=== PATIENT | female | born 1990 | race Caucasian/White ===

== ENCOUNTER 2018-12-19 06:55 | Inpatient (IN) | payer MEDICAID ==
[2018-12-19] MEDS ORDERED: Lidocaine 1% 50 ML MDV INJECT PRN (08:34)
[2018-12-19] MEDS ORDERED: Water For Irrigation,Sterile 1,000 ML Container IRR PRN (08:34)
[2018-12-19] MEDS ORDERED: Misoprostol 25 MCG (1/4 of 100 MCG) Tab PO PRN ×2 (08:34→13:00)
[2018-12-19] MEDS ORDERED: Sodium Chloride 0.9% 2.5 ML Syringe FLUSH PRN (08:34)
[2018-12-19] MEDS ORDERED: Misoprostol 200 MCG Tab PO PRN (08:34)
[2018-12-19] MEDS ORDERED: Tranexamic Acid 1,000 MG in Sodium Chloride 0.9% 100 ML IV PRN (08:34)
[2018-12-19] MEDS ORDERED: Nalbuphine 10 MG/1 ML Vial IVPUSH PRN (08:34)
[2018-12-19] MEDS ORDERED: Sodium Chloride 0.9% 10 ML Syringe FLUSH PRN (08:34)
[2018-12-19] MEDS ORDERED: Methylergonovine 0.2 MG/1 ML Amp IM PRN (08:34)
[2018-12-19] MEDS ORDERED: Butorphanol 1 MG/ML SDV IVPUSH PRN (08:34)
[2018-12-19] MEDS ORDERED: Carboprost Tromethamine 250 MCG/1 ML Amp IM PRN (08:34)
[2018-12-19] MEDS ORDERED: Terbutaline 1 MG/ML SDV SUBCUT PRN (08:34)
[2018-12-19] MEDS ORDERED: Oxytocin/0.9 % Sodium Chloride 30 UNIT/500 ML BAG IV SCH ×2 (08:45)
[2018-12-19] MEDS ORDERED: Lactated Ringers 1,000 ML IV SCH (08:45)
--- NOTE | 2018-12-19 08:46 | PCM.LDHP ---
L&D History of Present Illness - General Date of Service: 12/19/18 Admit Problem/Dx: Patient Status Order with Admit Dx/Problem 12/19/18 07:18 Patient Status [ADT] Routine Admission Diagnosis/Problem Admission Diagnosis/Problem 12/19/18 08:50 28yo presents following SROM at 2200 on 12/18/18 per patient, clear fluid; A+, R-NI, GBS negative, NKDA Source of Information: Patient History Limitations: Reports: No Limitations - History of Present Illness Introduction:: 28yo presents following SROM at 2200 on 12/18/18 per patient; A+, R-NI, GBS negative, NKDA Timing/Duration: Reports: minutes: Severity: Moderate Improves with: Reports: Movement - Related Data Allergies/Adverse Reactions: Allergies Allergy/AdvReac Type Severity Reaction Status Date / Time No Known Allergies Allergy Verified 12/19/18 07:46 Home Medications: Home Meds Vits #93/Iron Fum/FA [ Formula Tablet] 1 each PO 12/19/18 [ History] H&P Review of Systems - Review of Systems: Review Of Systems: See Below General: Reports: No Symptoms HEENT: Reports: No Symptoms Pulmonary: Reports: No Symptoms Cardiovascular: Reports: No Symptoms Gastrointestinal: Reports: No Symptoms Genitourinary: Reports: No Symptoms Musculoskeletal: Reports: No Symptoms Skin: Reports: No Symptoms Psychiatric: Reports: No Symptoms Neurological: Reports: No Symptoms Hematologic/Lymphatic: Reports: No Symptoms Immunologic: Reports: No Symptoms L&D Exam - Exam Exam: See Below - Vital Signs Weight: 70.579 kg - OB Specific Contraction Intensity: Mild to Moderate Movement: Active Heart Tones: Present - Exam General: Alert, Oriented, Cooperative, Mild Distress Neck: Supple, Trachea Midline, Full Range of Motion Lungs: Clear to Auscultation, Normal Respiratory Effort Cardiovascular: Regular Rate, Regular Rhythm, Normal S1, Normal S2 GI/Abdominal Exam: Normal Bowel Sounds Rectal Exam: Deferred Back Exam: Normal Inspection, Full Range of Motion Extremities: Normal Inspection, Normal Range of Motion Skin: Warm, Dry, Intact Psychiatric: Alert, Normal Affect, Normal Mood - Patient Data Lab Results Last 24 hrs: Laboratory Results - last 24 hr 12/19/18 12/19/18 Range/Units 07:20 07:20 Urine Color YELLOW Urine Appearance SLT CLOUDY Urine pH 7.0 (5.0-8.0) Ur Specific [place] 1.010 (1.001-1.035) Urine Protein NEGATIVE (NEGATIVE) mg/dL Urine Glucose (UA) NEGATIVE (NEGATIVE) mg/dL Urine Ketones NEGATIVE (NEGATIVE) mg/dL Urine Occult Blood LARGE H (NEGATIVE) Urine Nitrite NEGATIVE (NEGATIVE) Urine Bilirubin NEGATIVE (NEGATIVE) Urine Urobilinogen 0.2 (<2.0) EU/dL Ur Leukocyte Esterase SMALL H (NEGATIVE) Membrane Rupture POSITIVE - Problem List (1) Supervision of normal IUP (intrauterine ) in primigravida SNOMED Code(s): 52657202, 056824898, 719381834, 227356826 ICD Code: Z34.00 - ENCNTR FOR SUPRVSN OF NORMAL FIRST , UNSP TRIMESTER Status: Acute Priority: High Current Visit: Yes Qualifiers: Trimester: third trimester Qualified Code(s): Z34.03 - Encounter for supervision of normal first , third trimester Problem List Initiated/Reviewed/Updated: Yes Orders Last 24hrs: Active Orders 24 hr Category Date Time Status Patient Status [ADT] Routine ADT 12/19/18 07:18 Active Bedrest Bathroom Privileges [RC] ASDIRECTED Care 12/19/18 08:34 Active Communication Order [RC] ASDIRECTED Care 12/19/18 08:34 Active Communication Order [RC] ASDIRECTED Care 12/19/18 08:34 Active Communication Order [RC] ASDIRECTED Care 12/19/18 08:34 Active Heart Tones [RC] CONTINUOUS Care 12/19/18 08:35 Active Non Stress Test [RC] PER UNIT ROUTINE Care 12/19/18 07:18 Active May Shower [RC] ASDIRECTED Care 12/19/18 08:35 Active Notify Provider [RC] PRN Care 12/19/18 08:34 Active Notify Provider [RC] PRN Care 12/19/18 08:34 Active Notify Provider [RC] PRN Care 12/19/18 08:35 Active Notify Provider [RC] STAT Care 12/19/18 08:34 Active Oxygen Therapy [RC] ASDIRECTED Care 12/19/18 08:34 Active Up ad Pooja [RC] ASDIRECTED Care 12/19/18 07:18 Active Vaginal Exam [RC] Click to Edit Care 12/19/18 07:18 Active Vital Signs [RC] PER UNIT ROUTINE Care 12/19/18 07:18 Active Regular Diet [DIET] Diet 12/19/18 Breakfast Active CBC W/O DIFF,HEMOGRAM [HEME] Routine Lab 12/19/18 08:35 Ordered TYPE AND SCREEN [BBK] Routine Lab 12/19/18 08:35 Ordered Butorphanol [Stadol] Med 12/19/18 08:34 Active 1 mg IVPUSH Q1H PRN Carboprost Tromethamine [Hemabate DS] Med 12/19/18 08:34 Ordered 250 mcg IM ASDIRECTED PRN Lactated Ringers [Ringers, Lactated] 1,000 ml Med 12/19/18 08:45 Ordered IV ASDIRECTED Lidocaine 1% [Xylocaine 1%] Med 12/19/18 08:34 Ordered 50 ml INJECT ONETIME PRN Methylergonovine [Methergine] Med 12/19/18 08:34 Ordered 0.2 mg IM ASDIRECTED PRN Nalbuphine [Nubain] Med 12/19/18 08:34 Active 10 mg IVPUSH Q1H PRN Oxytocin/0.9 % Sodium Chloride [Oxytocin 30 Unit/500 ML Med 12/19/18 08:45 Ordered -NS] 30 unit in 500 ml IV TITRATE Oxytocin/0.9 % Sodium Chloride [Oxytocin 30 Unit/500 ML Med 12/19/18 08:45 Ordered -NS] 30 unit in 500 ml IV TITRATE Sodium Chloride 0.9% [Saline Flush] Med 12/19/18 08:34 Ordered 10 ml FLUSH ASDIRECTED PRN Sodium Chloride 0.9% [Saline Flush] Med 12/19/18 08:34 Ordered 2.5 ml FLUSH ASDIRECTED PRN Terbutaline [Brethine] Med 12/19/18 08:34 Ordered 0.25 mg SUBCUT ASDIRECTED PRN Tranexamic Acid [Cyklokapron] 1,000 mg Med 12/19/18 08:34 Ordered Sodium Chloride 0.9% [Normal Saline] 100 ml IV ONETIME Water For Irrigation,Sterile [Sterile Water for Med 12/19/18 08:34 Ordered Irrigation] 1,000 ml IRR ASDIRECTED PRN miSOPROStol [Cytotec] Med 12/19/18 08:34 Ordered 200 mcg PO ONETIME PRN miSOPROStol [Cytotec] Med 12/19/18 08:34 Ordered 25 mcg PO ONETIME PRN miSOPROStol [Cytotec] Med 12/19/18 13:00 Ordered 25 mcg PO Q4H PRN Scalp Electrode [WOMSER] Per Unit Routine Oth 12/19/18 08:35 Ordered Medication Administration Instruction [OM.PC] Q3H Oth 12/19/18 08:45 Ordered Peripheral IV Insertion Adult [OM.PC] Routine Oth 12/19/18 08:35 Ordered Resuscitation Status Routine Resus Stat 12/19/18 07:18 Ordered Medication Orders Butorphanol Tartrate (Stadol) 1 mg IVPUSH Q1H PRN PRN Reason: Pain Carboprost Tromethamine (Hemabate Ds) 250 mcg IM ASDIRECTED PRN PRN Reason: Post Hemorrhage Lactated Ringer's (Ringers, Lactated) 1,000 mls @ 150 mls/hr IV ASDIRECTED DEONTE Oxytocin/Sodium Chloride (Oxytocin 30 Unit/500 Ml-Ns) 30 unit in 500 mls @ 2 mls/hr IV TITRATE DEONTE; Protocol Oxytocin/Sodium Chloride (Oxytocin 30 Unit/500 Ml-Ns) 30 unit in 500 mls @ 999 mls/hr IV TITRATE DEONTE Tranexamic Acid 1,000 mg/ (Sodium Chloride) 110 mls @ 660 mls/hr IV ONETIME PRN PRN Reason: Bleeding Lidocaine HCl (Xylocaine 1%) 50 ml INJECT ONETIME PRN PRN Reason: Laceration repair Methylergonovine Maleate (Methergine) 0.2 mg IM ASDIRECTED PRN PRN Reason: Post Hemorrhage Misoprostol (Cytotec) 25 mcg PO ONETIME PRN PRN Reason: Cervical Ripening Misoprostol (Cytotec) 25 mcg PO Q4H PRN PRN Reason: Cervical Ripening Misoprostol (Cytotec) 200 mcg PO ONETIME PRN PRN Reason: Post Hemorrhage Nalbuphine HCl (Nubain) 10 mg IVPUSH Q1H PRN PRN Reason: Pain (severe 7-10) Sodium Chloride (Saline Flush) 10 ml FLUSH ASDIRECTED PRN PRN Reason: Keep Vein Open Sodium Chloride (Saline Flush) 2.5 ml FLUSH ASDIRECTED PRN PRN Reason: Keep Vein Open Sterile Water (Sterile Water For Irrigation) 1,000 ml IRR ASDIRECTED PRN PRN Reason: delivery Terbutaline Sulfate (Brethine) 0.25 mg SUBCUT ASDIRECTED PRN PRN Reason: Tacysystole Assessment/Plan Comment:: LABOR: A: 28yo presents following SROM at 2200 on 12/18/18 per patient; A+, R-NI, GBS negative, NKDA P:admit, cytotec 25 mcg PO q4h x2, pain management PRN, anticipate , Dr. Mejía updated
[2018-12-19] MEDS ORDERED: Lanolin 100% Cream 7 GM Tube TOP PRN (15:35)
[2018-12-19] MEDS ORDERED: oxyCODONE 5 MG Tab PO PRN (15:35)
[2018-12-19] MEDS ORDERED: Ibuprofen 400 MG Tab PO PRN (15:35)
[2018-12-19] MEDS ORDERED: Witch Hazel Medicated Pads 40/Jar TOP PRN (15:35)
[2018-12-19] MEDS ORDERED: Bisacodyl 10 MG Supp RECTAL PRN (15:35)
[2018-12-19] MEDS ORDERED: Docusate Sodium 100 MG Cap PO PRN (15:35)
[2018-12-19] MEDS ORDERED: Acetaminophen 500 MG Tab PO PRN ×2 (15:35)
[2018-12-19] MEDS ORDERED: Ibuprofen 800 MG Tab PO PRN (15:35)
[2018-12-19] MEDS ORDERED: Benzocaine/Menthol 20%-0.5% Spray 78 GM Cannister TOP PRN (15:35)
--- NOTE | 2018-12-19 15:42 | PCM.DEL ---
L & D Note - General Info Date of Service: 12/19/18 - Delivery Note Labor: Spontaneous Delivery Outcome: Livebirth Delivery Method: Spontaneous Vaginal Delivery-Single Presentation: Vertex Nuchal Cord: Present (nuchal x1), Reduced Anesthesia Type: None Amniotic Fluid Description: Clear Episiotomy Type: None Laceration: None Placenta: Intact, Spontaneous Cord: 3 Vessels Resuscitation Needed: No : Stimulated, Warmed, [place] Used Second Stage Interventions: Reports: Second Nurse Assessed Progress of Descent, Second Nurse Reviewed Contraction Pattern, Second Nurse Reviewed Heart Tones, Encouragement Given, Pushing Effectively, Pushing, Pulls Own Legs Back Delivery Comments (Free Text/Narrative):: of female; APGARS 9/9; head delivered with good pushing; nuchal x1 noted; reduced around head; shoulders and body followed easily; baby to mom's abdomen with nurse at bedside to assess; EBL 100 mL; placenta delivered grossly intact, 3VC; mom and baby left in stable condition - General Info Date of Service: 12/19/18 Admission Dx/Problem (Free Text): Patient Status Order with Admit Dx/Problem 12/19/18 07:18 Patient Status [ADT] Routine Admission Diagnosis/Problem Admission Diagnosis/Problem 12/19/18 08:50 28yo presents following SROM at 2200 on 12/18/18 per patient, clear fluid; A+, R-NI, GBS negative, NKDA Functional Status: Reports: Pain Controlled - Review of Systems General: Reports: No Symptoms HEENT: Reports: No Symptoms Pulmonary: Reports: No Symptoms Cardiovascular: Reports: No Symptoms Gastrointestinal: Reports: No Symptoms Genitourinary: Reports: No Symptoms Musculoskeletal: Reports: No Symptoms Skin: Reports: No Symptoms Neurological: Reports: No Symptoms Psychiatric: Reports: No Symptoms - Patient Data Weight - Most Recent: 70.579 kg Lab Results Last 24 Hours: Laboratory Results - last 24 hr 12/19/18 12/19/18 12/19/18 Range/Units 07:20 07:20 08:55 WBC 13.79 H (4.0-11.0) K/uL RBC 4.56 (4.30-5.90) M/uL Hgb 13.2 (12.0-16.0) g/dL Hct 39.2 (36.0-46.0) % MCV 86.0 (80.0-98.0) fL MCH 28.9 (27.0-32.0) pg MCHC 33.7 (31.0-37.0) g/dL RDW Std Deviation 42.6 (28.0-62.0) fl RDW Coeff of Peter 14 (11.0-15.0) % Plt Count 194 (150-400) K/uL MPV 11.30 (7.40-12.00) fL Nucleated RBC % 0.0 /100WBC Nucleated RBCs # 0 K/uL Urine Color YELLOW Urine Appearance SLT CLOUDY Urine pH 7.0 (5.0-8.0) Ur Specific [place] 1.010 (1.001-1.035) Urine Protein NEGATIVE (NEGATIVE) mg/dL Urine Glucose (UA) NEGATIVE (NEGATIVE) mg/dL Urine Ketones NEGATIVE (NEGATIVE) mg/dL Urine Occult Blood LARGE H (NEGATIVE) Urine Nitrite NEGATIVE (NEGATIVE) Urine Bilirubin NEGATIVE (NEGATIVE) Urine Urobilinogen 0.2 (<2.0) EU/dL Ur Leukocyte Esterase SMALL H (NEGATIVE) Membrane Rupture POSITIVE Blood Type Antibody Screen 12/19/18 Range/Units 08:55 WBC (4.0-11.0) K/uL RBC (4.30-5.90) M/uL Hgb (12.0-16.0) g/dL Hct (36.0-46.0) % MCV (80.0-98.0) fL MCH (27.0-32.0) pg MCHC (31.0-37.0) g/dL RDW Std Deviation (28.0-62.0) fl RDW Coeff of Peter (11.0-15.0) % Plt Count (150-400) K/uL MPV (7.40-12.00) fL Nucleated RBC % /100WBC Nucleated RBCs # K/uL Urine Color Urine Appearance Urine pH (5.0-8.0) Ur Specific [place] (1.001-1.035) Urine Protein (NEGATIVE) mg/dL Urine Glucose (UA) (NEGATIVE) mg/dL Urine Ketones (NEGATIVE) mg/dL Urine Occult Blood (NEGATIVE) Urine Nitrite (NEGATIVE) Urine Bilirubin (NEGATIVE) Urine Urobilinogen (<2.0) EU/dL Ur Leukocyte Esterase (NEGATIVE) Membrane Rupture Blood Type A POSITIVE Antibody Screen NEGATIVE Med Orders - Current: Current Medications Acetaminophen (Tylenol Extra Strength) 500 mg PO Q4H PRN PRN Reason: Pain Acetaminophen (Tylenol Extra Strength) 1,000 mg PO Q4H PRN PRN Reason: Pain Benzocaine/Menthol (Dermoplast Pain Relief 20%-0.5% [place]) 78 gm TOP ASDIRECTED PRN PRN Reason: Perineal Comfort Measure Bisacodyl (Dulcolax) 10 mg RECTAL ONETIME PRN PRN Reason: Constipation Docusate Sodium (Colace) 100 mg PO BID PRN PRN Reason: Constipation Emollient Ointment (Lansinoh Hpa) 0 gm TOP ASDIRECTED PRN PRN Reason: Sore Nipples Ibuprofen (Motrin) 400 mg PO Q4H PRN PRN Reason: Pain Ibuprofen (Motrin) 800 mg PO Q6H PRN PRN Reason: Pain Oxycodone HCl (Oxycodone) 5 mg PO Q2H PRN PRN Reason: Pain Witch Siobhan (Tucks) 1 pad TOP ASDIRECTED PRN PRN Reason: comfort care Discontinued Medications Butorphanol Tartrate (Stadol) 1 mg IVPUSH Q1H PRN PRN Reason: Pain Carboprost Tromethamine (Hemabate Ds) 250 mcg IM ASDIRECTED PRN PRN Reason: Post Hemorrhage Lactated Ringer's (Ringers, Lactated) 1,000 mls @ 150 mls/hr IV ASDIRECTED DEONTE Oxytocin/Sodium Chloride (Oxytocin 30 Unit/500 Ml-Ns) 30 unit in 500 mls @ 2 mls/hr IV TITRATE [facility]; Protocol Oxytocin/Sodium Chloride (Oxytocin 30 Unit/500 Ml-Ns) 30 unit in 500 mls @ 999 mls/hr IV TITRATE [facility] Last Admin: 12/19/18 15:25 Dose: 999 mls/hr Tranexamic Acid 1,000 mg/ (Sodium Chloride) 110 mls @ 660 mls/hr IV ONETIME PRN PRN Reason: Bleeding Lidocaine HCl (Xylocaine 1%) 50 ml INJECT ONETIME PRN PRN Reason: Laceration repair Methylergonovine Maleate (Methergine) 0.2 mg IM ASDIRECTED PRN PRN Reason: Post Hemorrhage Misoprostol (Cytotec) 25 mcg PO ONETIME PRN PRN Reason: Cervical Ripening Last Admin: 12/19/18 09:28 Dose: 25 mcg Misoprostol (Cytotec) 25 mcg PO Q4H PRN PRN Reason: Cervical Ripening Misoprostol (Cytotec) 200 mcg PO ONETIME PRN PRN Reason: Post Hemorrhage Nalbuphine HCl (Nubain) 10 mg IVPUSH Q1H PRN PRN Reason: Pain (severe 7-10) Sodium Chloride (Saline Flush) 10 ml FLUSH ASDIRECTED PRN PRN Reason: Keep Vein Open Sodium Chloride (Saline Flush) 2.5 ml FLUSH ASDIRECTED PRN PRN Reason: Keep Vein Open Sterile Water (Sterile Water For Irrigation) 1,000 ml IRR ASDIRECTED PRN PRN Reason: delivery Terbutaline Sulfate (Brethine) 0.25 mg SUBCUT ASDIRECTED PRN PRN Reason: Tacysystole - Exam General: Alert, Oriented, Cooperative, No Acute Distress GI/Abdominal Exam: Soft, Non-Tender (Female) Exam: Normal External Exam, Vaginal Bleeding Back Exam: Full Range of Motion Extremities: Normal Range of Motion Skin: Warm, Dry, Intact Neurological: No New Focal Deficit Psy/Mental Status: Alert, Normal Affect, Normal Mood - Problem List & Annotations (1) Supervision of normal IUP (intrauterine ) in primigravida SNOMED Code(s): 95179933, 586083007, 412557514, 137312698 Code(s): Z34.00 - ENCNTR FOR SUPRVSN OF NORMAL FIRST , UNSP TRIMESTER Status: Acute Priority: High Current Visit: Yes Qualifiers: Trimester: third trimester Qualified Code(s): Z34.03 - Encounter for supervision of normal first , third trimester (2) (normal spontaneous vaginal delivery) SNOMED Code(s): 10303062 Code(s): O80 - ENCOUNTER FOR FULL-TERM UNCOMPLICATED DELIVERY Status: Acute Priority: High Current Visit: Yes - Problem List Review Problem List Initiated/Reviewed/Updated: Yes - Plan Plan:: LABOR: A: 28yo presents following SROM at 2200 on 12/18/18 per patient; A+, R-NI, GBS negative, NKDA P:admit, cytotec 25 mcg PO q4h x2, pain management PRN, anticipate , Dr. Mejía updated Delivery: of female; APGARS 9/9; head delivered with good pushing; nuchal x1 noted; reduced around head; shoulders and body followed easily; baby to mom's abdomen with nurse at bedside to assess; EBL 100 mL; placenta delivered grossly intact, 3VC; mom and baby left in stable condition Plan: Routine plan of care
--- NOTE | 2018-12-20 11:22 | PCM.DCSUM1 ---
Discharge Summary - Hospital Course Free Text/Narrative:: Discharge home with . Follow up in 6 weeks or sooner if needed. Diagnosis: Stroke: No - Discharge Data Discharge Date: 12/20/18 Discharge Disposition: Home, Self-Care 01 Condition: Good - Patient Instructions Diet: Usual Diet as Tolerated Activity: As Tolerated, No Strenuous Activities, Rest and Relax Today Driving: May Drive Today Showering/Bathing: May Shower Notify Provider of: Fever, Increased Pain, Swelling and Redness, Nausea and/or Vomiting Other/Special Instructions: Discharge home with . Follow up in 6 weeks or sooner if needed. - Discharge Plan *PRESCRIPTION DRUG MONITORING PROGRAM REVIEWED*: Not Applicable *COPY OF PRESCRIPTION DRUG MONITORING REPORT IN PATIENT JANEL: Not Applicable Home Medications: Home Meds Vits #93/Iron Fum/FA [ Formula Tablet] 1 each PO 12/19/18 [ History] Oxygen Therapy Mode: Room Air - Discharge Summary/Plan Comment DC Time >30 min.: Yes - General Info Date of Service: 12/20/18 Functional Status: Reports: Pain Controlled, Tolerating Diet, Ambulating, Urinating - Review of Systems General: Reports: No Symptoms HEENT: Reports: No Symptoms Pulmonary: Reports: No Symptoms Cardiovascular: Reports: No Symptoms Gastrointestinal: Reports: No Symptoms Genitourinary: Reports: No Symptoms Musculoskeletal: Reports: No Symptoms Skin: Reports: No Symptoms Neurological: Reports: No Symptoms Psychiatric: Reports: No Symptoms - Patient Data Vitals - Most Recent: Last Vital Signs Temp 36.7 C 12/20/18 07:30 Pulse 94 12/20/18 07:30 Resp 18 12/20/18 07:30 BP 114/68 12/20/18 07:30 Pulse Ox 98 12/20/18 07:30 Weight - Most Recent: 70.579 kg Med Orders - Current: Current Medications Acetaminophen (Tylenol Extra Strength) 500 mg PO Q4H PRN PRN Reason: Pain Acetaminophen (Tylenol Extra Strength) 1,000 mg PO Q4H PRN PRN Reason: Pain Benzocaine/Menthol (Dermoplast Pain Relief 20%-0.5% [place]) 78 gm TOP ASDIRECTED PRN PRN Reason: Perineal Comfort Measure Bisacodyl (Dulcolax) 10 mg RECTAL ONETIME PRN PRN Reason: Constipation Docusate Sodium (Colace) 100 mg PO BID PRN PRN Reason: Constipation Emollient Ointment (Lansinoh Hpa) 0 gm TOP ASDIRECTED PRN PRN Reason: Sore Nipples Ibuprofen (Motrin) 400 mg PO Q4H PRN PRN Reason: Pain Ibuprofen (Motrin) 800 mg PO Q6H PRN PRN Reason: Pain Oxycodone HCl (Oxycodone) 5 mg PO Q2H PRN PRN Reason: Pain Witch Siobhan (Tucks) 1 pad TOP ASDIRECTED PRN PRN Reason: comfort care Discontinued Medications Butorphanol Tartrate (Stadol) 1 mg IVPUSH Q1H PRN PRN Reason: Pain Carboprost Tromethamine (Hemabate Ds) 250 mcg IM ASDIRECTED PRN PRN Reason: Post Hemorrhage Lactated Ringer's (Ringers, Lactated) 1,000 mls @ 150 mls/hr IV ASDIRECTED DEONTE Oxytocin/Sodium Chloride (Oxytocin 30 Unit/500 Ml-Ns) 30 unit in 500 mls @ 2 mls/hr IV TITRATE DEONTE; Protocol Oxytocin/Sodium Chloride (Oxytocin 30 Unit/500 Ml-Ns) 30 unit in 500 mls @ 999 mls/hr IV TITRATE DEONTE Last Admin: 12/19/18 15:25 Dose: 999 mls/hr Tranexamic Acid 1,000 mg/ (Sodium Chloride) 110 mls @ 660 mls/hr IV ONETIME PRN PRN Reason: Bleeding Lidocaine HCl (Xylocaine 1%) 50 ml INJECT ONETIME PRN PRN Reason: Laceration repair Methylergonovine Maleate (Methergine) 0.2 mg IM ASDIRECTED PRN PRN Reason: Post Hemorrhage Misoprostol (Cytotec) 25 mcg PO ONETIME PRN PRN Reason: Cervical Ripening Last Admin: 12/19/18 09:28 Dose: 25 mcg Misoprostol (Cytotec) 25 mcg PO Q4H PRN PRN Reason: Cervical Ripening Misoprostol (Cytotec) 200 mcg PO ONETIME PRN PRN Reason: Post Hemorrhage Nalbuphine HCl (Nubain) 10 mg IVPUSH Q1H PRN PRN Reason: Pain (severe 7-10) Sodium Chloride (Saline Flush) 10 ml FLUSH ASDIRECTED PRN PRN Reason: Keep Vein Open Sodium Chloride (Saline Flush) 2.5 ml FLUSH ASDIRECTED PRN PRN Reason: Keep Vein Open Sterile Water (Sterile Water For Irrigation) 1,000 ml IRR ASDIRECTED PRN PRN Reason: delivery Terbutaline Sulfate (Brethine) 0.25 mg SUBCUT ASDIRECTED PRN PRN Reason: Tacysystole - Exam General: Reports: Alert, Oriented, Cooperative, No Acute Distress Lungs: Reports: Normal Respiratory Effort GI/Abdominal Exam: Soft, Non-Tender (Female) Exam: Deferred, Vaginal Bleeding Rectal (Female) Exam: Deferred Back Exam: Reports: Normal Inspection, Full Range of Motion Extremities: Normal Inspection, Normal Range of Motion, Non-Tender, No Pedal Edema, Normal Capillary Refill Skin: Reports: Warm, Dry, Intact Neurological: Reports: No New Focal Deficit, Normal Gait, Normal Speech, Normal Tone, Strength Equal Bilateral Psy/Mental Status: Reports: Alert, Normal Affect, Normal Mood
== END 2018-12-20 18:15 | disposition home or self-care (01) | DRG 807 ==
LOC: MW.OBCHECK 06:55 → MW.OB 06:57 → MW.OBCHECK 09:20 → MW.OB 09:21 → OBSVTOIN 15:23 → MW.OB 20:01
PROVIDERS: ADMIT Obstetrics & Gynecology; ATTEND Advanced Practice Midwife
PROC: 10E0XZZ Delivery of Products of Conception, External Approach (ICD-10-PCS; principal; 2018-12-19)
DX: O69.81X0 Labor and delivery complicated by cord around neck, without compression, not applicable or unspecified (principal); Z37.0 Single live birth; Z3A.39 39 weeks gestation of pregnancy
CPT/HCPCS: 36415; 59025; 59409; 81003; 84112; 85027; 86850; 86900; 86901; A9270-GY; J2590